=== PATIENT | male | born 1995 | race Caucasian/White ===

== ENCOUNTER 2017-01-20 10:26 | Emergency (ER) | payer MEDICAID ==
[~2017-01-20] VITALS: Ht 180.3 cm; Wt 67.1 kg
[2017-01-20 10:39] VITALS: BP 119/75
[2017-01-20] MEDS ORDERED: IBUPROFEN 200 MG TABLET ONE (11:13)
[2017-01-20] MEDS ORDERED: IBUPROFEN 200 MG TABLET PO ONE (11:30)
== END 2017-01-20 11:24 | disposition home or self-care (01) ==
LOC: ED 11:20
DX: S39.012A Strain of muscle, fascia and tendon of lower back, initial encounter (principal); X58.XXXA Exposure to other specified factors, initial encounter; Y93.72 Activity, wrestling; Y92.89 Other specified places as the place of occurrence of the external cause; Y99.8 Other external cause status
CPT/HCPCS: 99283

== ENCOUNTER 2018-04-19 10:57 | Emergency (ER) | payer SELFPAY ==
[~2018-04-19] VITALS: Ht 180.3 cm; Wt 68.2 kg
[2018-04-19 11:16] VITALS: BP 117/58
[2018-04-19] MEDS ORDERED: ONDANSETRON ODT 4 MG PO ONE (11:30)
[2018-04-19 11:59] LABS: BASOPHILS # (AUTO) 0.02 x10^3/uL (0-0.1); BASOPHILS % (AUTO) 0 % (0-1); EOSINOPHILS # (AUTO) 0.18 x10^3/uL (0-0.4); EOSINOPHILS % (AUTO) 3 % (1-7); LYMPHOCYTES # (AUTO) 1.99 x10^3/uL (1-3.4); LYMPHOCYTES % (AUTO) 32 % (22-44); MD NO; MEAN CORPUSCULAR HEMOGLOBIN 32.5 pg (27.5-34.5); MEAN CORPUSCULAR VOLUME 95.4 fL (81-97); MONOCYTES # (AUTO) 0.56 x10^3/uL (0.2-0.8); MONOCYTES % (AUTO) 9 % (2-9); NEUTROPHILS % (AUTO) 56 % (42-75); PLATELET COUNT 311 x10^3/uL (130-400); RED BLOOD COUNT 5.13 x10^6/uL (4.38-5.82); RED CELL DISTRIBUTION WIDTH 13.1 % (9.4-14.8)
[2018-04-19 12:10] LABS: ALBUMIN 4.2 g/dL (3.4-5.0); ANION GAP 5 mmol/L (5-15); CALCIUM 9.8 mg/dL (8.5-10.1); CHLORIDE 107 mmol/L (98-107); CREATININE 0.85 mg/dL (0.7-1.3)
--- NOTE | 2018-04-19 12:18 | NUR ---
TO ROOM FROM LOBBY. NAD.
[2018-04-19] MEDS ORDERED: ONDANSETRON ODT 4 MG ONE (12:28)
--- NOTE | 2018-04-19 12:30 | NUR ---
Assumed care of patient. C/O nausea and diarrhea, denies vomitting. Zofran admin. Will continue to monitor.
--- NOTE | 2018-04-19 12:37 | NUR ---
Provided with water and instructed to wait a few mintues to allow zofran to work.
== END 2018-04-19 13:35 | disposition home or self-care (01) ==
LOC: ED 13:27
DX: R19.7 Diarrhea, unspecified (principal); F17.200 Nicotine dependence, unspecified, uncomplicated
CPT/HCPCS: 36415; 80048; 82040; 85025; 99283; Q0162

== ENCOUNTER 2018-06-08 22:04 | Emergency (ER) | payer SELFPAY ==
[~2018-06-08] VITALS: Ht 177.8 cm; Wt 65.9 kg
[2018-06-08 22:12] VITALS: BP 115/74
[2018-06-08] MEDS ORDERED: HYDROcodone/APAP 5/325 TABLET PO STA (22:40)
[2018-06-08] MEDS ORDERED: HYDROcodone/APAP 5/325 TABLET ONE (22:41)
== END 2018-06-09 00:31 | disposition home or self-care (01) ==
LOC: ED 23:59
DX: S92.355A Nondisplaced fracture of fifth metatarsal bone, left foot, initial encounter for closed fracture (principal); F17.210 Nicotine dependence, cigarettes, uncomplicated; X50.1XXA Overexertion from prolonged static or awkward postures, initial encounter; Y93.89 Activity, other specified; Y92.413 State road as the place of occurrence of the external cause; Y99.8 Other external cause status
CPT/HCPCS: 29515; 99284

== ENCOUNTER 2019-06-30 09:50 | Emergency (ER) | payer OTHER ==
[~2019-06-30] VITALS: Ht 180.3 cm; Wt 67.0 kg
[2019-06-30 09:55] VITALS: BP 143/75
--- NOTE | 2019-06-30 10:48 | NUR ---
PT AMBULATED WITH S.O. AND TECH TO ROOM. STEADY GAIT.
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
--- NOTE | 2019-06-30 10:52 | NUR ---
ERMD AT BEDSIDE EVALUATING PT.
[2019-06-30] MEDS ORDERED: CEFTRIAXONE 250 MG IM ONE (11:00)
[2019-06-30] MEDS ORDERED: AZITHROMYCIN 500 MG TABLET PO ONE (11:00)
[2019-06-30] MEDS ORDERED: AZITHROMYCIN 250 MG TABLET ONE (11:11)
[2019-06-30] MEDS ORDERED: CEFTRIAXONE 250 MG ONE (11:11)
--- NOTE | 2019-06-30 11:15 | NUR ---
MEDICATED ADMINISTERED PER EMAR.
--- NOTE | 2019-06-30 11:18 | NUR ---
PT DC HOME IN A STABLE CONDITION. DC INSTRUCTIONS WERE DISCUSSED WITH PT. PT VERBALIZED UNDERSTANDING. NO FURTHER QUESTIONS OR CONCERNS EXPRESSED AT THAT TIME. PT AMBULATED WITH RN AND S.O. TO DC DESK. STEADY GAIT.
== END 2019-06-30 11:20 | disposition home or self-care (01) ==
LOC: ED 11:03
DX: A57 Chancroid (principal); F17.200 Nicotine dependence, unspecified, uncomplicated
CPT/HCPCS: 96372; 99283; J0696

== ENCOUNTER 2019-07-19 12:31 | Emergency (ER) | payer OTHER ==
[~2019-07-19] VITALS: Ht 177.8 cm; Wt 66.8 kg
[2019-07-19 12:40] VITALS: BP 136/79
[2019-07-19] MEDS ORDERED: CEFTRIAXONE 250 MG IM ONE (13:30)
[2019-07-19] MEDS ORDERED: AZITHROMYCIN 500 MG TABLET PO ONE (13:30)
[2019-07-19] MEDS ORDERED: LIDOCAINE-MPF 1%, 2ML ONE ×2 (13:38→13:58)
[2019-07-19] MEDS ORDERED: CEFTRIAXONE 1,000 MG ONE (13:39)
[2019-07-19] MEDS ORDERED: AZITHROMYCIN 500 MG TABLET ONE (13:39)
[2019-07-19] MEDS ORDERED: CEFTRIAXONE 250 MG ONE (13:58)
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
--- NOTE | 2019-07-19 14:14 | NUR ---
eXTENSIVE DISCUSSION WITH PT REGARDING BENEFITS OF STI TREATMENT, PT STILL REFUSING. INFORMED TO PLEASE GO TO PCP FOR SOME VIRAL TESTING FOR FURTHER WORKUP. PT INFORMED OF ER CAPABILITIES AND THAT THE [facility] WILL WELCOME HIM FOR FURTHER WORKUP.
--- NOTE | 2019-07-19 14:20 | NUR ---
Patient/Caregiver given discharge instructions and they have confirmed that they understand the instructions. Patient ambulatory with steady gait.
== END 2019-07-19 14:24 | disposition home or self-care (01) ==
LOC: ED 14:09
DX: A57 Chancroid (principal); F17.200 Nicotine dependence, unspecified, uncomplicated
CPT/HCPCS: 87491; 87591; 99283

== ENCOUNTER 2020-04-05 13:27 | Emergency (ER) | payer SELFPAY ==
[~2020-04-05] VITALS: Ht 180.3 cm; Wt 71.1 kg
[2020-04-05] MEDS ORDERED: HYDROcodone/APAP 5/325 TABLET ONE ×2 (14:21→14:24)
[2020-04-05 14:27] VITALS: BP 132/72
[2020-04-05] MEDS ORDERED: HYDROcodone/APAP 5/325 TABLET PO ONE (14:30)
== END 2020-04-05 14:36 | disposition home or self-care (01) ==
LOC: ED 14:20
DX: K08.89 Other specified disorders of teeth and supporting structures (principal); Z87.891 Personal history of nicotine dependence
CPT/HCPCS: 99283